=== PATIENT | male | born 1985 | race American Indian/Alaskan Native ===

== ENCOUNTER 2018-05-27 18:49 | Emergency (ER) | payer OTHER ==
[2018-05-27 19:05] VITALS: BMI 28.7
[2018-05-27] MEDS ORDERED: Albuterol 0.083% Inhal Sol (2.5 mg/3 mL) UD INH STA ×4 (19:06→20:36)
[2018-05-27] MEDS ORDERED: Ipratropium 0.02% Inhal Soln (0.5 mg/2.5 ml) UD IH STA (19:07)
--- NOTE | 2018-05-27 19:42 | ED PDOC ---
Arrival/HPI - General Chief Complaint: Respiratory Distress Time Seen by Provider: 05/27/18 18:55 Historian: Patient - History of Present Illness Narrative History of Present Illness (Text): 05/27/18 19:35 A 33 y/o M w/ h/o asthma, presents to the emergency department complaining of asthma exacerbation. Patient reports he has a nebulizer machine at home, but denies using it for his symptoms stating the doses are not strong enough. He reports using the albuterol inhaler 3 times in 1 hour last night, but reports minimal relief. He states his last exacerbation was last year and denies any previous history of prior intubations for his asthma. He reports taking Robutussin and regurgitating it immediately after. Patient denies fever, chills , or an other complaints at this time. No PMD Past Medical History - Provider Review Nursing Documentation Reviewed: Yes - Cardiac Hx Cardiac Disorders: No - Pulmonary Hx Asthma: Yes - Neurological Hx Neurological Disorder: No - HEENT Hx HEENT Disorder: No - Renal Hx Renal Disorder: No - Endocrine/Metabolic Hx Endocrine Disorders: No - Hematological/Oncological Hx Blood Disorders: No - Integumentary Hx Dermatological Disorder: No - Musculoskeletal/Rheumatological Hx Musculoskeletal Disorders: No - Gastrointestinal Hx Gastrointestinal Disorders: No - Genitourinary/Gynecological Hx Genitourinary Disorders: No - Psychiatric Hx Psychophysiologic Disorder: No Hx Substance Use: No - Anesthesia Hx Anesthesia: No Family/Social History - Physician Review Nursing Documentation Reviewed: Yes Family/Social History: No Known Family HX Smoking Status: Never Smoked Hx Alcohol Use: No Hx Substance Use: No Allergies/Home Meds Allergies/Adverse Reactions: Allergies No Known Allergies Allergy (Verified 05/27/18 19:05) Home Medications: Home Meds Medication Instructions Recorded Confirmed Albuterol Sulfate [Ventolin Hfa] 18 gm IH PRN PRN 05/27/18 05/27/18 Review of Systems - Physician Review All systems were reviewed & negative as marked: Yes - Review of Systems Constitutional: absent: Fevers, Night Sweats Respiratory: Wheezing Cardiovascular: Chest Pain (patient states he experienced chest pain upon arriving into the Emergency room, however no longer experiencing smyptom at this time.) Physical Exam Vital Signs Reviewed: Yes Vital Signs Temp Pulse Resp BP Pulse Ox 05/27/18 21:45 98.8 F 89 18 149/77 98 05/27/18 20:50 98.7 F 99 H 18 148/74 98 05/27/18 20:42 98.7 F 05/27/18 19:42 100.4 F H 05/27/18 19:15 20 05/27/18 18:50 100.4 F H 89 20 152/76 H 100 Temperature: Febrile Blood Pressure: Normal Pulse: Regular Respiratory Rate: Normal Appearance: Positive for: Well-Appearing Pain Distress: None Mental Status: Positive for: Alert and Oriented X 3 - Systems Exam Head: Present: Atraumatic, Normocephalic Pupils: Present: PERRL Extroacular Muscles: Present: EOMI Conjunctiva: Present: Normal Mouth: Present: Moist Mucous Membranes Neck: Present: Normal Range of Motion Respiratory/Chest: Present: Wheezes (inspiratory and expiratory wheezing bilaterally). No: Respiratory Distress, Retracting Cardiovascular: Present: Regular Rate and Rhythm, Normal S1, S2. No: Murmurs Abdomen: No: Tenderness, Distention, Peritoneal Signs Back: Present: Normal Inspection Upper Extremity: Present: Normal Inspection. No: Cyanosis, Edema Lower Extremity: Present: Normal Inspection. No: Edema Neurological: Present: GCS=15, CN II-XII Intact, Speech Normal Skin: Present: Warm, Dry, Normal Color. No: Rashes Psychiatric: Present: Alert, Oriented x 3, Normal Insight, Normal Concentration Medical Decision Making ED Course and Treatment: 05/27/18 19:39 Impression: 33 year male with wheezing Patient denies any recent sick contacts or chills, thus I am less concerned of an acute infectious process. He will be treated for his fever and will be monitored frequently Differential Diagnosis included but are not limited to: Asthma exacerbation Plan: -- Tylenol -- Albuterol -- Atrovent --Prednisone -- Reassess and disposition Progress Notes: 05/27/18 20:41 Patient reevaluated after 3 nebulizer treatments and notes significant improvement in respirations, but is noted to have minimal wheezes bilaterally. Additional nebulizer ordered. 05/27/18 21:53 Patient reevaluated with marked improvement in pulmonary exam. Education in emphasizing the importance of using his nebulizer machine and rescue medication. Patient demonstrates understanding and will follow up in clinic. Scripts provided. Return protocol given. He is stable for discharge. - Medication Orders Current Medication Orders: Discontinued Medications Acetaminophen (Tylenol 325mg Tab) 650 mg PO STAT STA Stop: 05/27/18 19:36 Last Admin: 05/27/18 19:42 Dose: 650 mg MAR Pain/Vitals Document 05/27/18 19:42 LA (Rec: 05/27/18 19:43 LA [id number]) Pain Reassessment Is This A Pain ReAssessment? No Sleep Is patient sleeping during reassessment? No Presence of Pain Presence of Pain Yes Location Pain Location Body Site Back Vitals Temperature (97.6 F-99.6 F) 100.4 F Temperature Source Oral Re-Assess: MAR Pain/Vitals Document 05/27/18 20:42 RG (Rec: 05/27/18 22:04 RG [id number]) Vitals Temperature (97.6 F-99.6 F) 98.7 F Albuterol Sulfate (Albuterol 0.083% Inhal Margret (2.5 Mg/3 Ml) Ud) 2.5 mg INH STAT STA Stop: 05/27/18 19:07 Last Admin: 05/27/18 19:25 Dose: 2.5 mg Albuterol Sulfate (Albuterol 0.083% Inhal Margret (2.5 Mg/3 Ml) Ud) 2.5 mg INH STAT STA Stop: 05/27/18 19:35 Last Admin: 05/27/18 19:43 Dose: 2.5 mg Albuterol Sulfate (Albuterol 0.083% Inhal Margret (2.5 Mg/3 Ml) Ud) 2.5 mg INH STAT STA Stop: 05/27/18 19:36 Last Admin: 05/27/18 19:58 Dose: 2.5 mg Albuterol Sulfate (Albuterol 0.083% Inhal Margret (2.5 Mg/3 Ml) Ud) 2.5 mg INH STAT STA Stop: 05/27/18 20:37 Last Admin: 05/27/18 21:23 Dose: 2.5 mg Ipratropium [place] (Atrovent) 0.5 mg IH STAT STA Stop: 05/27/18 19:08 Last Admin: 05/27/18 19:25 Dose: 0.5 mg Prednisone (Prednisone Tab) 60 mg PO STAT ONE Stop: 05/27/18 20:37 Last Admin: 05/27/18 21:22 Dose: 60 mg - Scribe Statement The provider has reviewed the documentation as recorded by the Leyla Deshpande Provider Scribe Provider Scribe Attestation: All medical record entries made by the Leyla were at my direction and personally dictated by me. I have reviewed the chart and agree that the record accurately reflects my personal performance of the history, physical exam, medical decision making, and the department course for this patient. I have also personally directed, reviewed, and agree with the discharge instructions and disposition. Disposition/Present on Arrival - Present on Arrival Any Indicators Present on Arrival: No History of DVT/PE: No History of Uncontrolled Diabetes: No Urinary Catheter: No History of Decub. Ulcer: No History Surgical Site Infection Following: None - Disposition Have Diagnosis and Disposition been Completed?: Yes Diagnosis: Asthma attack Disposition: HOME/ ROUTINE Disposition Time: 21:38 Patient Plan: Discharge Condition: IMPROVED Discharge Instructions (ExitCare): Asthma in Adults, Avoiding Asthma Triggers, Inhalers, Rescue vs Controller Inhalers Prescriptions: Methylprednisolone [Medrol Dose Pack (21 tabs)] 4 mg PO DAILY #21 mg Referrals: Pharmacy [facility] [Outside] - Follow up with primary Forms: [facility] (Turkmen)
[2018-05-27 21:00] VITALS: RESP 18; O2SAT 98
[2018-05-27 22:04] VITALS: BP 149/77; PULSE 89; TEMP 98.8
== END 2018-05-27 21:50 | disposition home or self-care (01) ==
LOC: ED 18:49
DX: J45.909 Unspecified asthma, uncomplicated (principal)

== ENCOUNTER 2018-10-16 17:09 | Emergency (ER) | payer MEDICAID, OTHER ==
[2018-10-16 17:09] VITALS: BMI 28.7
--- NOTE | 2018-10-16 17:16 | ED PDOC ---
Arrival/HPI - General Historian: Patient - History of Present Illness Narrative History of Present Illness (Text): 10/16/18 17:12 33 y/o male, pmh including asthma, nkda, c/o coughing and wheezing x 2 days. Pt. stated that he has chronic asthma, chronic smoker, been coughing and wheezing x 2 days, no chest pain or shortness of breath, no night sweat, no numbness or tingling, no palpitation, no rash, only on albuterol MDI, no other medical or psychological complaints. Past Medical History - Provider Review Nursing Documentation Reviewed: Yes - Cardiac Hx Cardiac Disorders: No - Pulmonary Hx Asthma: Yes - Neurological Hx Neurological Disorder: No - HEENT Hx HEENT Disorder: No - Renal Hx Renal Disorder: No - Endocrine/Metabolic Hx Endocrine Disorders: No - Hematological/Oncological Hx Blood Disorders: No - Integumentary Hx Dermatological Disorder: No - Musculoskeletal/Rheumatological Hx Musculoskeletal Disorders: No - Gastrointestinal Hx Gastrointestinal Disorders: No - Genitourinary/Gynecological Hx Genitourinary Disorders: No - Psychiatric Hx Psychophysiologic Disorder: No Hx Substance Use: No - Anesthesia Hx Anesthesia: No Family/Social History - Physician Review Nursing Documentation Reviewed: Yes Family/Social History: Unknown Family HX Smoking Status: Never Smoked Hx Alcohol Use: No Hx Substance Use: No Allergies/Home Meds Allergies/Adverse Reactions: Allergies No Known Allergies Allergy (Verified 05/27/18 19:05) Home Medications: Home Meds Medication Instructions Recorded Confirmed Albuterol Sulfate [Ventolin Hfa] 18 gm IH PRN PRN 05/27/18 05/27/18 Review of Systems - Review of Systems Constitutional: absent: Fatigue, Fevers Eyes: absent: Vision Changes ENT: absent: Hearing Changes Respiratory: Cough, Wheezing. absent: SOB, Sputum Cardiovascular: absent: Chest Pain Gastrointestinal: absent: Abdominal Pain, Nausea, Vomiting Musculoskeletal: absent: Arthralgias Skin: absent: Rash, Pruritis Neurological: absent: Headache, Dizziness Psychiatric: absent: Anxiety, Depression, Suicidal Ideation Physical Exam - Systems Exam Head: Present: Atraumatic, Normocephalic Pupils: Present: PERRL Extroacular Muscles: Present: EOMI Conjunctiva: Present: Normal Mouth: Present: Moist Mucous Membranes Neck: Present: Normal Range of Motion Respiratory/Chest: Present: Wheezes, Decreased Breath Sounds, Rhonchi. No: Respiratory Distress, Accessory Muscle Use, Rales, Retracting, Tachypneic, Tender to Palpation Cardiovascular: Present: Regular Rate and Rhythm, Normal S1, S2, Other (no pedal edema). No: Murmurs Abdomen: No: Tenderness, Distention, Peritoneal Signs Back: Present: Normal Inspection Upper Extremity: Present: Normal Inspection. No: Cyanosis, Edema Lower Extremity: Present: Normal Inspection. No: Edema Neurological: Present: GCS=15, CN II-XII Intact, Speech Normal Skin: Present: Warm, Dry, Normal Color. No: Rashes Psychiatric: Present: Alert, Oriented x 3, Normal Insight, Normal Concentration Medical Decision Making ED Course and Treatment: 10/16/18 17:16 -Chest xray -Duoneb/prednisone/azithromycin/singulair -Observe and reassess 10/16/18 18:40 -Chest xray: ER wet read: no active disease -Pt. received the treatment, feeling much better, talking and feeling well, walking and asymptomatic. -Discharge home with zithromax, prednisone, singulair, albuterol MDI, stay hydrated, stop smoking, follow up with your own pmd within 2 days, return to the ER for any new or worsening signs or symptoms. - RAD Interpretation Radiology Orders: Chest xray: no active disease Dairy Associate: Radiologist - PA / [employer] / Resident Statement MD/DO has reviewed & agrees with the documentation as recorded. Disposition/Present on Arrival - Present on Arrival Any Indicators Present on Arrival: No History of DVT/PE: No History of Uncontrolled Diabetes: No Urinary Catheter: No History of Decub. Ulcer: No History Surgical Site Infection Following: None - Disposition Have Diagnosis and Disposition been Completed?: Yes Diagnosis: Bronchitis, Asthma Disposition: HOME/ ROUTINE Disposition Time: 17:17 Patient Plan: Discharge Condition: IMPROVED Additional Instructions: -Discharge home with zithromax, prednisone, singulair, albuterol MDI, stay hydrated, stop smoking, follow up with your own pmd within 2 days, return to the ER for any new or worsening signs or symptoms. Prescriptions: Albuterol HFA [Ventolin HFA 90 mcg/actuation (8 g)] 2 puff IH [id number] PRN #1 in PRN Reason: Other Azithromycin [Zithromax] 250 mg PO DAILY #4 tab Montelukast Sodium [Singulair] 10 mg PO DAILY #14 tablet predniSONE [predniSONE Tab] 2 tab PO DAILY #8 tab Referrals: PCP,NO [Primary Care Provider] - Follow up with primary Forms: WORK NOTE
[2018-10-16] MEDS: Albuterol-Ipratrop 3 mg / 0.5 (3 ml) UD IH SCH ×6 (17:30→18:47)
[2018-10-16 17:35] VITALS: BP 123/60; PULSE 80; RESP 18; TEMP 98.3; O2SAT 98
--- NOTE | 2018-10-17 10:05 | CARD ---
APPROVED REPORT Date of service: 10/16/2018 EKG Measurement Heart [id number] <Conclusion> Poor data quality, interpretation may be adversely affected Normal sinus rhythm Normal ECG
--- NOTE | 2018-10-17 12:13 | RAD ---
Date of service: 10/16/2018 HISTORY: wheezing/cough, asthma COMPARISON: No prior. FINDINGS: LUNGS: No active pulmonary disease. PLEURA: No significant pleural effusion identified, no pneumothorax apparent. CARDIOVASCULAR: No aortic atherosclerotic calcification present. Normal cardiac size. No pulmonary vascular congestion. OSSEOUS STRUCTURES: No significant abnormalities. VISUALIZED UPPER ABDOMEN: Normal. OTHER FINDINGS: None. IMPRESSION: No active disease.
== END 2018-10-16 19:02 | disposition home or self-care (01) ==
LOC: ED 17:09
DX: J45.909 Unspecified asthma, uncomplicated (principal)